=== PATIENT | male | born 1980 | race Caucasian/White ===

== ENCOUNTER 2016-07-12 10:20 | Emergency (ER) | payer SELFPAY ==
[~2016-07-12] VITALS: Ht 188 cm; Wt 75.0 kg
[~2016-07-12 10:20] MED LIST: BACT2OIN TOPICAL; BACT800T5 PO; CYCL1TAB29 PO; MOBI15TA PO; NORC5TAB PO
[2016-07-12 10:26] VITALS: BP 112/64; PULSE 76; RESP 16; TEMP 98.2; O2SAT 98
[2016-07-12 10:29] VITALS: O2SAT 100
[2016-07-12] MEDS ORDERED: NO MEDICATIONS (10:34)
[2016-07-12] MEDS ORDERED: SODIUM CHLOR 0.9% 1000 ML INJ 1,000 ML IV SCH (11:14)
[2016-07-12] MEDS ORDERED: SODIUM CHLORIDE 0.9% FLUSH 5 ML FLUSH IVF PRN (11:15)
--- NOTE | 2016-07-12 11:16 | PD ---
HPI Chief Complaint: Alcohol/Drug Intoxication Time Seen by Provider: 11:16 Travel History International Travel<30 days: No Contact w/Intl Traveler<30days: No Traveled to known affect area: No History of Present Illness HPI 35-year-old male with a history of anxiety, schizophrenia, bipolar disorder presents to the emergency department requesting detox and complaining of body aches. The patient states that he has a "bad drug problem." States that he uses cocaine, Xanax, Flakka, and alcohol regularly. States that he has been using drugs for 4 days straight and he has body aches all over. States he has been nauseous and vomiting, unable to eat for 4 days. He denies any fever, chills, chest pain, shortness of breath, abdominal pain, diarrhea, cough or cold symptoms. He is stating "I'm starving" and requesting food. Denies suicidal or homicidal ideations. No other complaints. PFSH Past Medical History Medical History: Denies Significant Hx Diminished Hearing: No Past Surgical History Surgical History: No Previous Surgery Social History Alcohol Use: Yes Tobacco Use: Yes (1PPD) Substance Use: Yes (marijuana, COCAINE , HEROINE) Allergies-Medications (Allergen,Severity, Reaction): Coded Allergies: *MDRO Multi-Drug Resistant Organism (Verified Adverse Reaction, Unknown, 04/26/16) MRSA (buttock-01/31/16) Reported Meds & Prescriptions Reported Meds & Active Scripts Active Reported [No Medications] Review of Systems Except as stated in HPI: all other systems reviewed are Neg Physical Exam Narrative GENERAL: Well-nourished and well-developed male patient in no acute distress who is nontoxic appearing. SKIN: Warm and dry. HEAD: Normocephalic and atraumatic. EYES: No injection, drainage, or hyphema noted. PERRLA. EOMI. ENT: No nasal drainage noted. Oropharynx is clear. NECK: Supple and the trachea is midline. CARDIOVASCULAR: Regular rate and rhythm. RESPIRATORY: Breath sounds are equal bilaterally with no accessory muscle use, wheezing, rhonchi, or crackles. GASTROINTESTINAL: Abdomen is soft, non-tender, and nondistended. MUSCULOSKELETAL: No obvious deformities, swelling, cyanosis, or ecchymosis is present throughout the upper and lower extremities. Patient has full range of motion without any signs of neurovascular compromise. NEUROLOGICAL: Awake, alert, and oriented. Normal speech and gait. Cranial nerves are grossly intact. Data Data Last Documented VS Vital Signs Date Time Temp Pulse Resp B/P Pulse Ox O2 Delivery O2 Flow Rate FiO2 07/12/16 10:29 78 17 98 Room Air 07/12/16 10:26 98.2 112/64 Orders Complete Blood Count With Diff (07/12/16 11:14) Comprehensive Metabolic Panel (07/12/16 11:14) Urinalysis - C+S If Indicated (07/12/16 11:14) Iv Access Insert/Monitor (07/12/16 11:14) Ecg Monitoring (07/12/16 11:14) Oximetry (07/12/16 11:14) Sodium Chlor 0.9% 1000 Ml Inj (Ns 1000 M (07/12/16 11:14) Sodium Chloride 0.9% Flush (Ns Flush) (07/12/16 11:15) Creatine Kinase (Cpk) (07/12/16 11:14) Drug Screen, Random Urine (07/12/16 11:14) Alcohol (Ethanol) (07/12/16 11:14) Diet Regular Basic (07/12/16 Lunch) Labs Laboratory Tests Test 07/12/16 11:15 White Blood Count 7.4 TH/MM3 Red Blood Count 4.04 MIL/MM3 Hemoglobin 13.3 GM/DL Hematocrit 38.1 % Mean Corpuscular Volume 94.3 FL Mean Corpuscular Hemoglobin 32.9 PG Mean Corpuscular Hemoglobin 34.9 % Concent Red Cell Distribution Width 13.6 % Platelet Count 217 TH/MM3 Mean Platelet Volume 7.6 FL Neutrophils (%) (Auto) 66.8 % Lymphocytes (%) (Auto) 25.1 % Monocytes (%) (Auto) 5.7 % Eosinophils (%) (Auto) 1.0 % Basophils (%) (Auto) 1.4 % Neutrophils # (Auto) 4.9 TH/MM3 Lymphocytes # (Auto) 1.9 TH/MM3 Monocytes # (Auto) 0.4 TH/MM3 Eosinophils # (Auto) 0.1 TH/MM3 Basophils # (Auto) 0.1 TH/MM3 CBC Comment DIFF FINAL Differential Comment Sodium Level 141 MEQ/L Potassium Level 3.4 MEQ/L Chloride Level 104 MEQ/L Carbon Dioxide Level 29.2 MEQ/L Anion Gap 8 MEQ/L Blood Urea Nitrogen 8 MG/DL Creatinine 1.11 MG/DL Estimat Glomerular Filtration 76 ML/MIN Rate Random Glucose 78 MG/DL Calcium Level 8.5 MG/DL Total Bilirubin 0.2 MG/DL Aspartate Amino Transf 15 U/L (AST/SGOT) Alanine Aminotransferase 20 U/L (ALT/SGPT) Alkaline Phosphatase 90 U/L Total Creatine Kinase 213 U/L Total Protein 6.8 GM/DL Albumin 3.8 GM/DL Ethyl Alcohol Level 35 MG/DL [facility] Medical Decision Making Medical Screen Exam Complete: Yes Emergency Medical Condition: Yes Differential Diagnosis Dehydration versus rhabdomyolysis versus withdrawal versus electrolyte abnormality versus substance abuse Narrative Course 35-year-old male presents to the emergency department requesting detox and complaining of body aches. Patient is afebrile, vital signs are stable. Physical examination is unremarkable. Patient uses multiple drugs. I reviewed the EMR which shows a 3 months ago he presented to our ED with similar complaints and had rhabdomyolysis. IV access is obtained, labs were drawn and sent. Patient is administered fluids. CBC is unremarkable. CMP shows slightly decreased potassium 3.4, otherwise unremarkable. CPK is within normal limits. EtOH is 35. Patient has remained stable and without complaint while here in the emergency department. He has been sleeping comfortably. He is stable for discharge to follow-up with outpatient detox facility. I discussed the case with my attending physician Dr. Soler who is aware of the patients history, physical examination findings, and treatment plan. Diagnosis Primary Impression: Substance abuse Referrals: [facility] Patient Instructions: General Instructions Additional Instructions: Follow-up with a detox facility such as [facility]. Return to the ED for any acute worsening of symptoms. Med/Other Pt SpecificInfo: No Change to Meds Disposition: 01 DISCHARGE HOME Condition: Stable Sindhu Vyas Jul 12, 2016 11:16
[2016-07-12 11:27] LABS: AUTOMATED NEUTROPHIL # 4.9 TH/MM3 (1.8-7.7); BASOPHIL # 0.1 TH/MM3 (0-0.2); BASOPHIL % 1.4 % (0.0-2.0); EOSINOPHIL # 0.1 TH/MM3 (0-0.4); HEMATOCRIT 38.1 % (39.0-51.0); HEMO FLAGS DIFF FINAL; LYMPH % 25.1 % (9.0-44.0); LYMPHOCYTE # 1.9 TH/MM3 (1.0-4.8); MEAN CELL VOLUME 94.3 FL (80.0-100.0); MEAN CORPUSCULAR HEMOGLOBIN 32.9 PG (27.0-34.0); MEAN CORPUSCULAR HGB CONC 34.9 % (32.0-36.0); MONO % 5.7 % (0.0-8.0); NEUT % 66.8 % (16.0-70.0); PLATELET COUNT 217 TH/MM3 (150-450); RED BLOOD COUNT 4.04 MIL/MM3 (4.50-5.90); RED CELL DISTRIBUTION WIDTH 13.6 % (11.6-17.2); WHITE BLOOD COUNT 7.4 TH/MM3 (4.0-11.0)
[2016-07-12 11:49] LABS: ALT (GPT) 20 U/L (12-78); ANION GAP 8 MEQ/L (5-15); AST (GOT) 15 U/L (15-37); BICARBONATE 29.2 MEQ/L (21.0-32.0); BLOOD UREA NITROGEN 8 MG/DL (7-18); CHLORIDE 104 MEQ/L (98-107); GLOMERULAR FILTRATION RATE 76 ML/MIN (>89); POTASSIUM 3.4 MEQ/L (3.5-5.1); SODIUM (NA) 141 MEQ/L (136-145)
[2016-07-12 11:51] LABS: ALKALINE PHOSPHATASE 90 U/L (45-117); CREATINE KINASE 213 U/L (39-308); TOTAL BILIRUBIN ADULT 0.2 MG/DL (0.2-1.0)
[2016-07-13] MEDS ORDERED: NO MEDICATIONS (11:50)
== END 2016-07-12 12:56 | disposition home or self-care (01) ==
LOC: NEPC 10:20
DX: F19.10 Other psychoactive substance abuse, uncomplicated (principal); F14.10 Cocaine abuse, uncomplicated; F17.210 Nicotine dependence, cigarettes, uncomplicated; F11.10 Opioid abuse, uncomplicated; F12.10 Cannabis abuse, uncomplicated; Y90.1 Blood alcohol level of 20-39 mg/100 ml
CPT/HCPCS: 80053; 82550; 85025; 96360; 99283; J7030; 80320

== ENCOUNTER 2016-07-12 13:34 | Emergency (ER) | payer SELFPAY ==
[~2016-07-12] VITALS: Ht 180.3 cm; Wt 80.0 kg
[~2016-07-12 13:34] MED LIST changes: +NO MEDICATIONS
[2016-07-12 13:35] VITALS: BP 128/74; PULSE 80; RESP 15; TEMP 97.9; O2SAT 99
[2016-07-12 17:53] VITALS: BP 111/67; PULSE 51; TEMP 96.1; O2SAT 99
[2016-07-12 17:55] VITALS: BP 109/60; PULSE 88; TEMP 97.5; O2SAT 97
--- NOTE | 2016-07-12 19:13 | PD ---
HPI Chief Complaint: Suicide Ideation/Attempt Time Seen by Provider: 19:12 Travel History International Travel<30 days: No Contact w/Intl Traveler<30days: No Traveled to known affect area: No History of Present Illness HPI 35-year-old male presents to the emergency department stating he is suicidal. Patient was seen earlier today requesting detox. Blood work was completed at that time. Patient states that he has many plans to kill himself including hanging, cutting. He states that he hears voices and these hallucinations occasionally. Patient reports drinking alcohol and using multiple drugs. And also drug use he states "all kinds". When asked how he uses he chose, he states "every way". The patient states he does not want to talk and has very limited answers to my questions. He denies any medical complaints at this time. PFSH Past Medical History Bipolar Disorder: Yes Diminished Hearing: No Schizophrenia: Yes Social History Alcohol Use: Yes Tobacco Use: Yes (1PPD) Substance Use: Yes Allergies-Medications (Allergen,Severity, Reaction): Coded Allergies: *MDRO Multi-Drug Resistant Organism (Verified Adverse Reaction, Unknown, 04/26/16) MRSA (buttock-01/31/16) Reported Meds & Prescriptions Reported Meds & Active Scripts Active Reported [No Medications] Review of Systems Except as stated in HPI: all other systems reviewed are Neg Physical Exam Narrative GENERAL: Well-developed well-nourished male patient, afebrile. SKIN: Warm and dry. HEAD: Normocephalic. Atraumatic. EYES: No scleral icterus. No injection or drainage. NECK: Supple, trachea midline. No JVD or lymphadenopathy. CARDIOVASCULAR: Regular rate and rhythm without murmurs, gallops, or rubs. RESPIRATORY: Breath sounds equal bilaterally. No accessory muscle use. Lungs sounds are clear to auscultation. GASTROINTESTINAL: Abdomen soft, non-tender, nondistended. MUSCULOSKELETAL: No cyanosis, or edema. PSYCHIATRIC: No delusional thought processes. No hallucinations. Data Data Last Documented VS Vital Signs Date Time Temp Pulse Resp B/P Pulse Ox O2 Delivery O2 Flow Rate FiO2 07/12/16 17:55 97.5 88 109/60 97 07/12/16 13:35 15 Orders Psych Screen (07/12/16 17:04) Diet Regular Basic (07/12/16 Dinner) Drug Screen, Random Urine (07/12/16 18:13) [facility] Medical Decision Making Medical Screen Exam Complete: Yes Emergency Medical Condition: Yes Medical Record Reviewed: Yes Differential Diagnosis Depression versus anxiety versus malingering Narrative Course 35-year-old male presents to the emergency department for suicidal ideation. He was here earlier requesting detox. I reviewed lab work from this morning. CBC is unremarkable. CMP shows no acute abnormality. Alcohol level is 35. Urine drug screen is pending. Patient is medically cleared for psychiatric screening and disposition. Mental health screening discussed with the patient. Psychiatric screen ordered. Diagnosis Primary Impression: Polysubstance abuse Additional Instructions: Patient is medically cleared for psychiatric screening and disposition. Condition: Stable ZiJoaquina Jul 12, 2016 19:13
[2016-07-12 21:58] VITALS: BP 112/53; PULSE 61; RESP 19; O2SAT 99
[2016-07-12 22:43] LABS: AMPHETAMINE, URINE NEG (NEG); BARBITURATES, URINE NEG (NEG); COCAINE, URINE POS (NEG)
[2016-07-13 02:15] VITALS: BP 105/53; PULSE 53; RESP 18; O2SAT 99
[2016-07-13 06:47] VITALS: BP 135/79; PULSE 57; RESP 18; O2SAT 98
[2016-07-13 10:53] VITALS: BP 123/60; PULSE 78; RESP 18; TEMP 96.2; O2SAT 96
[2016-07-13 11:12] VITALS: BP 123/60; PULSE 59; RESP 18; TEMP 96.4; O2SAT 98
--- NOTE | 2016-07-13 11:47 | PD.CONS ---
Provisional Diagnosis Admission Date [place] I. Polysubstance abuse F 19.10, substance-induced mood disorder F 19.94, malingering Z 76.5 History of Present Illness Service Psychiatry Consult Requested By EDMD Reason for Consult Assessment Primary Care Physician No Primary Care Physician HPI Patient is a 35-year-old white male who comes to the emergency department complaining of depression suicidality wishing to get through detox. Of interest patient was prior seen in the ED less than 1 hour before this admission with visit [phone] at that time urine toxicology positive for marijuana cocaine the blood alcohol level of 35. He was treated in the ED hydrated and discharged in good condition returning within 35-40 minutes now stating suicidal the history of psychiatric issues and off his medication. Is a strong indication of manipulation related to this. In any event patient was seen and screened with this episode and brought to the J pod. Patient seen by me in the J pod along with nurse Selene patient is a heavily tattooed white male somewhat disheveled in appearance tattoos up and down both arms had to use over his neck extending anterior to his ears up into his forehead. He is somewhat entitled and manipulative. Initially stating he was seatback in his psychiatric medicines that is supposedly been given by her psychiatrist in [place] though none for an extended period of time. He gives no specific reason why he is in this area though he states he is appear with his but is been to since December 2015. He does minimizes drug use. Though we have an hour EMR urine toxicology on 04/18/16 positive for marijuana cocaine and benzodiazepines and also urine toxicology and 04/26/16 urine toxicology positive for cocaine and marijuana. He gives a vague reluctant history of prior detox with questionable rehabilitation. He gets angry when I question him related to his incarceration history that appear she has been incarcerated for over 18 years. When we discussed alternatives including a physician certificate to help him get into a detox/rehabilitation program became more eating didn't and angry with me challenging me that several attempts at intimidation. At this time patient does not meet criteria for acute psychiatric hospitalization I feel there is a marked degree of manipulation and perhaps malingering related to this as the patient is also homeless. I will do APC refer him to detox center to give him the opportunity get some help with his polysubstance abuse. Of interest his was also came in for the same complaints, was also discharged and did also return at this time as he with the same issues Review of Systems Other No significant issues and review of systems Past Family Social History Coded Allergies: *MDRO Multi-Drug Resistant Organism (Verified Adverse Reaction, Unknown, 04/26/16) MRSA (buttock-01/31/16) Past Medical History Medically cleared ED twice in 24 hours Reported Medications [No Medications] No Conflict Check 07/12/16 Discontinued Scripts Sulfamethoxazole-Trimethoprim (Bactrim DS)800-160 Mg Tab1 Tab PO BID #20 TAB Ref 0 Prov:Andrey Hamilton MD 04/26/16 Mupirocin Topical (Bactroban Topical)2% Oint1 Appl TOPICAL BID #1 TUBE Ref 0 Prov:Andrey Hamilton MD 04/26/16 Meloxicam (Mobic)15 Mg Tab15 Mg PO DAILY #30 TAB Ref 0 Prov:Andrey Hamilton MD 04/26/16 Cyclobenzaprine (Flexeril)10 Mg Tab10 Mg PO TID #90 TAB Ref 0 Prov:Andrey Hamilton MD 04/26/16 Hydrocodone-Acetaminophen ([place])5-325 mg Tab1 Tab PO Q6H PRN (PAIN) #20 TAB Prov:Andrey Hamilton MD 04/26/16 Family History Unknown at this time Social History Patient here with his . Both are seeking detox and questionable rehabilitation Patient's Strengths (min. 2) Patient able access healthcare healthy and verbal at times somewhat manipulative and perhaps malingering Physical Exam Patient seen screened in ED medically cleared exam reviewed and agreed with Vital Signs Vital Signs Date Time Temp Pulse Resp B/P Pulse Ox O2 Delivery O2 Flow Rate FiO2 07/13/16 11:12 96.4 59 18 123/60 98 Room Air Mental Status Examination Alert oriented thin slender somewhat disheveled heavily tattooed white male both arms down to including the hands lateral side of the neck and into size of the face in front of the ears demanding manipulative and entitled Appearance Disheveled multiply tattooed Speech: Rapid, Tangential Orientation: x3 Memory: Unremarkable Thought Process: Linear Thought Content: Unremarkable Hallucination Type: None Attention and Concentration: Other (fair) Suicidal Ideation: Yes (patient making vague suicidal statements though none were documented with his visit to the ED 30 minutes prior, I feel this of manipulation and the malingering effort) Previous Suicide Attempts: Yes (vague manipulative) Homicidal Ideation: No Previous Homicide Attempts: No Insight: Poor Judgement: Poor Affect: Other (increase range of motion intensity) Mood: Angry, Oppositional, Irritable Motor Activity: Normal gait Assessment & Plan Problem List: (1) Polysubstance abuse ICD Code: F19.10 (2) Substance induced mood disorder ICD Code: F19.94 (3) Malingering ICD Code: Z76.5 Assessment & Plan Estimated LOS: days at this time patient does not meet criteria for inpatient psychiatric hospitalization. I feel is marked degree of antisocial behaviors, manipulation and malingering. I will do a physician certificate since there is documentation of significant substance abuse history the be no Rx by me at the present time Discharge Planning PC done refer to detox facility Request HC Surrog/Guard Advoc?: No Krunal Ford MD Jul 13, 2016 11:47
[2016-07-13] MEDS ORDERED: NO MEDICATIONS (11:50)
[2016-07-13 17:54] VITALS: BP 138/63; PULSE 54; RESP 16; TEMP 96.3; O2SAT 98
== END 2016-07-13 19:42 | disposition home or self-care (01) ==
LOC: NEPJ 13:34
DX: F19.10 Other psychoactive substance abuse, uncomplicated (principal); F17.210 Nicotine dependence, cigarettes, uncomplicated; F20.9 Schizophrenia, unspecified; F31.9 Bipolar disorder, unspecified; Y90.1 Blood alcohol level of 20-39 mg/100 ml
CPT/HCPCS: 80307; 99284

== ENCOUNTER 2017-04-29 17:12 | Emergency (ER) | payer SELFPAY ==
[~2017-04-29] VITALS: Ht 188 cm; Wt 77.0 kg
[~2017-04-29 17:12] MED LIST changes: -BACT2OIN TOPICAL; -BACT800T5 PO; -CYCL1TAB29 PO; -MOBI15TA PO; -NORC5TAB PO
[2017-04-29 17:29] VITALS: BP 141/84; PULSE 89; RESP 16; TEMP 98.2
[2017-04-29] MEDS ORDERED: BACT800T5 PO (18:09)
[2017-04-29] MEDS ORDERED: MOBI15TA PO (18:09)
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
== END 2017-04-29 18:42 | disposition home or self-care (01) ==
LOC: PHED 17:12
DX: Z48.02 Encounter for removal of sutures (principal); M79.631 Pain in right forearm
CPT/HCPCS: 99284

== ENCOUNTER 2017-07-16 09:57 | Emergency (ER) | payer SELFPAY ==
[~2017-07-16 09:57] MED LIST changes: +BACT800T5 PO; +MOBI15TA PO
[2017-07-16 09:59] VITALS: BP 185/83; PULSE 106; RESP 20; O2SAT 100
--- NOTE | 2017-07-16 10:22 | PD ---
HPI Chief Complaint: Skin Problem Time Seen by Provider: 10:09 Travel History International Travel<30 days: No Contact w/Intl Traveler<30days: No Traveled to known affect area: No History of Present Illness HPI Patient comes emergency department complaining of a painful lesions under his right axilla ongoing for 2 weeks. Patient states they occasionally come to ahead and he has been popping the lesions. This seems to help some. Patient reports using hot water also seems to help. Pain is worse palpation. Patient reports history of MRSA. Patient reports that he is homeless. Patient denies any fevers, nausea, vomiting, trauma, numbness or tingling or, radiation of pain , or IV drug use. Patient denies any history of lesions like this in his axilla previously. Patient describes pain as a burning stabbing pain. PFSH Past Medical History Bipolar Disorder: Yes Diminished Hearing: No Schizophrenia: Yes Social History Alcohol Use: Yes Tobacco Use: Yes (1PPD) Substance Use: Yes (marijuana) Allergies-Medications (Allergen,Severity, Reaction): Coded Allergies: *MDRO Multi-Drug Resistant Organism (Verified Adverse Reaction, Unknown, ) MRSA (buttock-01/31/16) Reported Meds & Prescriptions Reported Meds & Active Scripts Active Ibuprofen 800 Mg Tab 800 Mg PO Q8H PRN Keflex (Cephalexin) 500 Mg Cap 500 Mg PO Q8H Bactrim DS (Sulfamethoxazole-Trimethoprim) 800-160 Mg Tab 1 Tab PO BID Review of Systems Except as stated in HPI: all other systems reviewed are Neg Physical Exam Narrative GENERAL: Well-developed, well nourished, in no acute distress, and non-ill appearing. SKIN: Multiple small firm immature abscess is noted in right axilla. There is no drainage. They are tender to palpation. There is no crepitus. Lesions are erythematous and mildly febrile. HEAD: Atraumatic. Normocephalic. EYES: Pupils equal and round. EOMI. No scleral icterus. No injection or drainage. ENT: No nasal bleeding or discharge. Mucous membranes pink and moist. NECK: Trachea midline. Supple. No nuclear rigidity. RESPIRATORY: No accessory muscle use. No respiratory distress. MUSCULOSKELETAL: No obvious deformities. No clubbing. No cyanosis. No edema. Full range of motion. NEUROLOGICAL: Awake and alert. No obvious cranial nerve deficits. Motor grossly within normal limits. Normal speech. PSYCHIATRIC: Appropriate mood and affect; insight and judgment normal. Data Data Last Documented VS Vital Signs Date Time Temp Pulse Resp B/P (MAP) Pulse Ox O2 Delivery O2 Flow Rate FiO2 07/16/17 09:59 106 20 185/83 (117) 100 Orders Orders Ibuprofen (Motrin) (07/16/17 10:30) Clindamycin Inj (Cleocin Inj) (07/16/17 10:30) Ed Discharge Order (07/16/17 10:17) MDM Medical Decision Making Medical Screen Exam Complete: Yes Emergency Medical Condition: Yes Differential Diagnosis Abscess, cellulitis, folliculitis, hidradenitis Narrative Course The patient has no evidence of obvious abscess at this time. The patient will be discharged on antibiotics for cellulitis with possible early/immature abscess. Clinical suspicion, diagnosis and care management was discussed. The patient was given signs and symptoms warnings for worsening infection, such as spreading of redness, increasing pain, and/or swelling, associated heat, pus or fever and instructed to return immediately if these signs or symptoms worsen. The patient is to return in 2 days for recheck for maturity. Sooner if worsens or as needed. The patient agrees with plan. Patient in no obvious distress upon re-evaluation. Patient was asked if they wanted to speak to my attending, which the patient did not wish to do at this time. Any questions/concerns in reference to patient diagnosis/condition discussed and clarified prior to patient's discharge. Reinforced sheer importance of close follow up with patient's primary physician or primary care clinic. Instructed patient to return to ED immediately, if symptoms return/ worsen. Patient showed understanding of above instructions. Further instructions and recommendations were detailed in discharge paperwork. Patient ambulated without difficulty out of ED at discharge. Diagnosis Primary Impression: Cellulitis Qualified Codes: L03.111 - Cellulitis of right axilla Referrals: [facility] Patient Instructions: Cellulitis (ED), General Instructions Additional Instructions: Follow-up with your primary care physician or return here in 2 days for recheck. Take all medication as prescribed. Bactrim is free at [employer]. Keflex is $4 at [facility]. Apply warm compresses to affected area multiple times throughout the day to promote maturity. Return to the emergency department sooner if symptoms get worse. Med/Other Pt SpecificInfo: Prescription(s) given Scripts Ibuprofen (Ibuprofen) 800 Mg Tab 800 MG PO Q8H Y for Pain/Inflammation, #30 TAB 0 Refills Prov: Anson Herrera MD 07/16/17 Cephalexin (Keflex) 500 Mg Cap 500 MG PO Q8H for Infection, #30 CAP 0 Refills Prov: Anson Herrera MD 07/16/17 Sulfamethoxazole-Trimethoprim (Bactrim DS) 800-160 Mg Tab 1 TAB PO BID for Infection, #20 TAB 0 Refills Prov: Anson Herrera MD 07/16/17 Disposition: 01 DISCHARGE HOME Condition: Stable Ricardo Alan Jul 16, 2017 10:22
[2017-07-16] MEDS ORDERED: IBUP1TAB7 PO (10:23)
[2017-07-16] MEDS ORDERED: CEPH-460 PO (10:23)
[2017-07-16] MEDS ORDERED: BACT800T5 PO (10:23)
[2017-07-16] MEDS ORDERED: CLINDAMYCIN PHOS 600 MG/4 ML VIAL IM ONE (10:30)
[2017-07-16] MEDS ORDERED: IBUPROFEN 800 MG TAB PO ONE (10:30)
[2017-07-16 11:33] VITALS: RESP 20
== END 2017-07-16 11:25 | disposition home or self-care (01) ==
LOC: NEPK 09:57
DX: L03.111 Cellulitis of right axilla (principal); F31.9 Bipolar disorder, unspecified; F20.9 Schizophrenia, unspecified; F17.200 Nicotine dependence, unspecified, uncomplicated
CPT/HCPCS: 96372